=== PATIENT | female | born 1990 | race Caucasian/White ===

== ENCOUNTER 2024-09-09 17:38 | Emergency (ER) | payer MEDICAID, SELFPAY ==
[2024-09-09 17:42] VITALS: BP 176/113; PULSE 74; RESP 17; TEMP 36.8; O2SAT 100
[2024-09-09 17:44] VITALS: BMI 20.1
--- NOTE | 2024-09-09 17:51 | XR_ITS ---
Examination: CT abdomen with intravenous contrast CT pelvis with intravenous contrast 2-D coronal reconstructions 2-D sagittal reconstructions Date and time of exam:September 09, 2024 1918 hours INDICATIONS: Injury by horse today to the left hip, left abdomen hip pain. CTDI: vol (mGy) 14.31 DLP: (mGycm) 471 Technique: Multiple axial sections of the abdomen and pelvis have been obtained. 64 slice high-resolution scanner used. 3 mm axial sections have been obtained, post intravenous injection of Isovue 370 2-D sagittal, coronal reconstructions obtained. Low dose protocols were performed. One or more of the following dose reduction techniques were used; automated exposure control, adjustment of the mA and/or KV according to patient size, use of iterative reconstruction technique. Findings: No focal liver or splenic or renal laceration Absent gallbladder Aorta intact no free blood in the abdomen Negative for pneumoperitoneum Urinary bladder intact Distended urinary bladder which is intact No lumbar or sacral fracture Hips bone to the pelvis is intact IMPRESSION: No abdominal parenchymal laceration No free blood in the abdomen or pelvis Osseous structures including hips appear intact
--- NOTE | 2024-09-09 17:51 | XR_ITS ---
Examination: CT brain head without contrast. 2-D sagittal coronal reconstructions Date and time of exam:September 09, 2024 1908 hours INDICATIONS: Images of the head today, head pain CTDI: vol (mGy):46.3 DLP: (mGycm):868 Technique: Multiple CT axial sections of the brain have been obtained, 5 mm slice thickness. Contrast has not been administered. 2-D sagittal, coronal reconstructions have been obtained Low dose protocols were performed. One or more of the following dose reduction techniques were used; automated exposure control, adjustment of the mA and/or KV according to patient size, use of iterative reconstruction technique. Findings: No significant ventricular enlargement. Intra-axial or extra-axial hemorrhage density is not seen. No mass effect or midline shift Basal cisterns are not remarkable. Fourth ventricle is midline. Cranial vault intact. Impression: Negative for acute hemorrhage, mass effect or midline shift
--- NOTE | 2024-09-09 17:51 | XR_ITS ---
Examination: CT maxillofacial, without intravenous contrast. 2-D sagittal reconstructions. 3-D reconstructions. Date and time of exam:September 09, 2024 1915 hours INDICATIONS: Injury to face and head, facial pain CTDI: vol (mGy):21.2 DLP: (mGycm):388 Technique: Multiple axial images of maxillofacial region, 3.0 mm slice thickness. 2-D sagittal and coronal reconstructions. 3-D reconstructions. Low dose protocols were performed. One or more of the following dose reduction techniques were used; automated exposure control, adjustment of the mA and/or KV according to patient size, use of iterative reconstruction technique. Findings: Frontal bone frontal sinuses intact Orbital rims intact, no retro-orbital contusion Nasal bones maxilla and the mandible intact IMPRESSION: No acute facial fracture.
--- NOTE | 2024-09-09 17:53 | EDNOTE_ITS ---
<Statement entered by Candice Solis MD - 09/11/24 18:30> As co-signing physician, I was present and available for consult prn. I concur with the plan and care as documented by the midlevel provider. Lower Extremity Injury RME/HPI General Chief Complaint: Hip Injury/Pain Stated Complaint: KICKED BY HORSE Time Seen by Provider: 09/09/24 17:47 Arrival date/time: 09/09/24 17:38 RME / HPI RME / HPI Narrative: 34-year-old female patient with no significant medical history, came in for evaluation regarding multiple injury after patient was kicked by a horse incident happened few minutes prior to ER visit, patient was kicked by a horse while behind a horse sustaining bruising and contusion to the left sacrum attic area, and open laceration to the left iliac area. Patient also complained of abdominal pain. Denies any neck pain no nausea no vomiting no LOC patient is able to ambulate but with pain. Tetanus vaccination is unknown. Related Data Previous Rx's ?Medication ?Instructions ?Recorded amoxicillin 875 mg-potassium 1 tab PO BID #14 tabs 02/23 clavulanate 125 mg tablet tramadol 50 mg tablet 50 mg PO Q6H PRN pain #20 ta bs 09/09/24 Allergies Allergy/AdvReac Type Severity Reaction Status Date / Time doxycycline Allergy Severe Hives Verified 09/09/24 17:55 metoclopramide (From Reglan) Allergy Severe Anxiety Verified 09/09/24 17:55 Tetracyclines Allergy Severe Hives Verified 09/09/24 17:55 Review of Systems Review of Systems Narrative Review of Systems: Review of system reviewed and within normal limits except mentioned in HPI ED Exam Narrative Physical exam: VITAL SIGNS: Reviewed. GENERAL APPEARANCE: Alert and interactive, follows commands, no acute distress, HEAD AND FACE: Bruising contusion swelling left zygomatic area, left eyebrow ENT: PERRL, pink conjunctivitis, eyelid no trauma, Mucous membrane moist. NECK: Supple, nontender, no nuchal rigidity. CHEST: No tenderness, no crepitus, no paradoxical movement, no retractions. LUNGS: Clear, well ventilated, symmetric, no rales, no wheezing, no ronchi, no stridor, good breath sounds bilaterally. HEART: Regular rate, regular rhythm, no murmur, no gallops. ABDOMEN: Soft, positive bowel sounds, nondistended, no guarding, nontender, no rebound, no masses, RECTAL: Deferred. GENITAL: Deferred. NEUROLOGICAL: Gross motor function intact sensory function intact, Appropriate for age. MUSCULOSKELETAL: low back nontender, full range of motion. 1.5 cm laceration, left iliac area with active bleeding with tenderness bruising EXTREMITIES: Nontender, full range of motion. SKIN: Color pink, dry, no rash, no lacerations, no abrasions, no contusions. LYMPHATICS: Deferred. Course Quality Measures none Orders Category Date Time Status CT Screening NOW Care 09/09/24 17:[address] abdomen pelvis w con Stat Exams 09/09/24 17:[address] facial bones wo con Stat Exams 09/09/24 17:[address] head/brain wo con Stat Exams 09/09/24 17:51 Completed Beta HCG,Quantitative Stat Lab 09/09/24 18:01 Completed CBC [CBC] Stat Lab 09/09/24 18:01 Completed CMP [Comprehensive Metabolic Panel] Stat Lab 09/09/24 18:01 Completed HCG Qualitative,Urine Stat Lab 09/09/24 19:50 Completed HCG,Qualitative Serum Stat Lab 09/09/24 18:01 Completed PTT [Partial Thromboplastin Time] Stat Lab 09/09/24 18:01 Completed UA, C/S IF [Urinalysis, C/S if Indicated] Stat Lab 09/09/24 19:50 Completed Urine Culture Stat Lab 09/09/24 19:50 Received Acetaminophen Tab [Tylenol ES Tab] Med 09/09/24 17:51 Discontinued 1,000 mg PO X1 ONE Amoxicillin/Pot Clav 875 [Augmentin 875] Med 09/09/24 19:00 Discontinued 1 tab PO X1 ONE Morphine Inj Med 09/09/24 18:54 Discontinued 5 mg IVP X1 ONE Ondansetron Odt [Zofran Odt] Med 09/09/24 17:51 Discontinued 4 mg PO X1 ONE TET,DIP/PERT AC (Adult)-Tdap [Boostrix Adult (Tdap) Med 09/09/24 17:56 Discontinued Vacc] 0.5 ml IMI .ONCE ONE Vital Signs Vital signs: Vital Signs Temperature 98.2 F 09/09/24 17:42 Pulse Rate 74 09/09/24 17:42 Respiratory Rate 17 09/09/24 17:42 Blood Pressure 176/113 H 09/09/24 17:42 Pulse Oximetry (%) 100 09/09/24 17:42 Oxygen Delivery Method Room Air 09/09/24 17:42 Procedures -ED Laceration Laceration 1: Site: other (Left iliac area) Size (cm): 2 Description: linear Depth: simple, single layer Local Anesthetic: lidocaine 1% Amount of anesthesia used (mL): 5 Pre-repair: wound explored and irrigated extensively Skin layer closed with: nylon Suture size (cm): 5-0 Number of sutures: 3 Technique: simple, interrupted Extremity Injury, Lower MDM Narrative MDM Narrative:: 34-year-old female patient with no significant medical history, came in for evaluation regarding multiple injury after patient was kicked by a horse incident happened few minutes prior to ER visit, patient was kicked by a horse while behind a horse sustaining bruising and contusion to the left sacrum attic area, and open laceration to the left iliac area. Patient also complained of abdominal pain. Denies any neck pain no nausea no vomiting no LOC patient is able to ambulate but with pain. Tetanus vaccination is unknown. Patient's workup all came back unremarkable. CT scan of the head came back unremarkable CT scan of face came back unremarkable CT scan of the abdomen and pelvis with contrast came back unremarkable. Results discussed with the patient. Urinalysis no hematuria. Repair and suturing was done by me see procedure notes Patient data External records reviewed:: None Clinical information provided by:: patient Social determinants that could affect healthcare access:: none Patient has the following chronic illnesses:: None How is presenting disease/condition affected by chronic disease/condition?: no chronic disease Evaluation data The following diagnostics were reviewed and interpreted by me:: lab results and radiology exam(s) Lab and/or radiology exams considered but not ordered:: None Interpretation Summary: See results MDM Medications / Prescriptions Medications or Prescriptions considered but not ordered:: None Medication administrations:: Medication Administration History Discontinued Medications Acetaminophen (Acetaminophen 500 Mg Tablet) 1,000 mg PO X1 ONE Stop: 09/09/24 17:52 Last Admin: 09/09/24 18:19 Dose: 1,000 mg Documented By: GM Amoxicillin/Clavulanate Potassium (Amoxicillin/Pot Clav 875 Tablet) 1 tab PO X1 ONE Stop: 09/09/24 19:01 Last Admin: 09/09/24 19:52 Dose: 1 tab Documented By: EE Diphtheria/Tetanus/Acell Pertussis (Diphth,Pertuss(Acell),Tet Vac 0.5 Ml Syr- Adult) 0.5 ml IMi .ONCE ONE Stop: 09/09/24 17:57 Last Admin: 09/09/24 19:53 Dose: Not Given Documented By: EE Non-Admin Reason: Patient Refused Morphine Sulfate (Morphine Sulf Inj 10 Mg/Ml Vial) 5 mg IVP X1 ONE Stop: 09/09/24 18:55 Last Admin: 09/09/24 19:00 Dose: 5 mg Documented By: DB Ondansetron HCl (Ondansetron Odt 4 Mg Tabrap) 4 mg PO X1 ONE; Protocol Stop: 09/09/24 17:52 Last Admin: 09/09/24 18:19 Dose: 4 mg Documented By: GM Morphine, Boostrix, Augmentin and Zofran Consultations Consultation(s) initiated? (list below): No Diagnosis Extremity Injury, Lower Differential Diagnosis: other (Left iliac laceration, contusion left eyebrow, kicked by a horse) Most likely diagnosis given after review of the tests above:: Left iliac laceration, contusion left eyebrow, kicked by a horse Admission Indicated Admission indicated?: not indicated Admission Request Was there a request for admission?: No Disposition Plan Disposition Plan: Discharge Discharge Attestation Discharge Attestation: The patient and all family members were given an opportunity to ask questions and understood the discharge instructions. Discharge instructions specifically effects, indications for sooner follow up or return to the emergency department, and the expected course of current diagnosis. Patient condition: Stable Discharge Plan Plan Patient Disposition: HOME (Self Care) Discharge Disposition comment: stable Prescriptions/Referrals Prescriptions/Med Rec: New tramadol 50 mg tablet 50 mg PO Q6H PRN (Reason: pain) Qty: 20 0RF amoxicillin-pot clavulanate 875-125 mg tablet 1 tab PO BID Qty: 14 0RF Referrals: No Primary/Family,Physician [Primary Care Provider] - In 1 week Problem List Clinical Impression: Contusion of eyebrow, Laceration Patient/Caregiver Discharge Instructions Discharge Activity: activity as tolerated Education Materials: ED Soft Tissue Contusion Print Language: Slovak Stand Alone Forms: Naila Award Info., Patient Portal Info Letter
[2024-09-09 18:07] LABS: Basophils # (Auto) 0.1 Thou/mm3 (0.0-0.2); Basophils % (Auto) 1 % (0-2.5); Eosinophils # (Auto) 0.1 Thou/mm3 (0.0-0.5); Eosinophils % (Auto) 2 % (0-10); Hematocrit 30.1 % (36.0-46.0); Hemoglobin 10.1 g/dL (12.0-16.0); Immature Granulocytes % (Auto) 1 % (0-0); Immature Granulocytes Auto 0.05 Thou/mm3 (0.00-0.00); Lymphocytes # (Auto) 1.2 Thou/mm3 (1.0-4.8); Lymphocytes % (Auto) 14 % (10-50); Mean Corpuscular HGB Conc 33.6 g/dl (31.0-37.0); Mean Corpuscular Hemoglobin 26.6 pg (25.0-35.0); Mean Corpuscular Volume 79 fL (80-100); Monocytes # (Auto) 0.5 Thou/mm3 (0.0-0.8); Monocytes % (Auto) 6 % (0-12); Neutrophils # (Auto) 6.5 Thou/mm3 (1.8-7.7); Neutrophils % (Auto) 77 % (37-80); Nucleated Red Blood Cell % 0 /100 WBC (0); Platelet Count 284 Thou/mm3 (140-440); RDW Standard Deviation 41.4 fL (36.4-46.3); Red Blood Count 3.79 Miln/mm3 (4.00-5.20); White Blood Count 8.3 Thou/mm3 (3.6-11.0)
[2024-09-09] MEDS: ACETAMINOPHEN 500 MG TABLET 1000 MG PO (18:19)
[2024-09-09] MEDS: ONDANSETRON ODT 4 MG TABRAP PO ×2 (18:19→21:59)
[2024-09-09 18:26] LABS: Alanine Aminotransferase 17 U/L (10-49); Albumin, Serum 4.3 gm/dL (3.5-5.0); Alkaline Phosphatase 40 U/L (46-116); Anion Gap 9 (7-16); BUN/Creatinine Ratio 12 Ratio (12-20); Bilirubin,Total 0.3 mg/dL (0.3-1.2); Blood Urea Nitrogen 11 mg/dL (9-23); Carbon Dioxide 23.3 mMol/L (20.0-31.0); Chloride 110 mMol/L (98-107); Creatinine (Component) 0.9 mg/dL (0.6-1.3); Estimated Creatinine Clearance 72.4 mL/min (>60); Globulin 2.2 gm/dL (2.3-3.5); Glucose 93 mg/dL (74-106); Osmolality,Calculated 282 (275-295); Potassium 4.1 mMol/L (3.4-5.1); Sodium 142 mMol/L (136-145); Total Protein 6.5 gm/dL (5.7-8.2); eGFR > 60 See Note
[2024-09-09 18:27] LABS: Partial Thromboplastin Time 20.7 Seconds (22.0-36.0)
[2024-09-09] MEDS: MORPHINE SULF INJ 10 MG/ML VIAL 5 MG IVP (19:00)
[2024-09-09 19:29] LABS: HCG,Qualitative Serum Positive
[2024-09-09] MEDS: AMOXICILLIN/POT CLAV 875 TABLET 1 TAB PO (19:52)
[2024-09-09 20:12] LABS: Collection Type, Urine Clean Catch
[2024-09-09 20:25] LABS: Beta HCG,Quantitative 15 mIU/mL (<5.0)
[2024-09-09 20:47] LABS: Bacteria,Urine Rare; Bilirubin,Urine Negative (Negative); Blood,Urine Trace (Negative); Clarity,Urine Clear (Clear/Hazy); Color,Urine Colorless (Lt Yel-Yel); Glucose, Urine Negative (Negative); Ketones,Urine Negative (Negative); Leukocyte Esterase,Urine Negative (Negative); Nitrite,Urine Positive (Negative); Protein,Urine Negative (Neg - Trace); RBC,Urine 3 /hpf (0-3); Squamous Epithelial Cell,Urine 1 /hpf (0-5); Urobilinogen,Urine Negative mg/dL (0.0-1.0); WBC,Urine 3 /hpf (0-5)
[2024-09-09 20:48] LABS: Culture Indicated,Urine Yes; HCG Qualitative,Urine Negative
[2024-09-09 21:25] VITALS: BP 150/102; PULSE 93; RESP 18; TEMP 36.7; O2SAT 99
[2024-09-09] MEDS: KETOROLAC INJ 60 MG/2 ML VIAL 30 MG IM (21:58)
[2024-09-09] MEDS: HYDROcodone/APAP 10/325 TAB PO (21:59)
== END 2024-09-09 22:12 | disposition home or self-care (01) ==
PROVIDERS: Nurse Practitioner Family; Emergency Provider Emergency Medicine
DX: S31.114A Laceration without foreign body of abdominal wall, left lower quadrant without penetration into peritoneal cavity, initial encounter (principal); S00.12XA Contusion of left eyelid and periocular area, initial encounter; S30.0XXA Contusion of lower back and pelvis, initial encounter; S39.91XA Unspecified injury of abdomen, initial encounter; S09.93XA Unspecified injury of face, initial encounter; S09.90XA Unspecified injury of head, initial encounter; W55.12XA Struck by horse, initial encounter
CPT/HCPCS: 12002; 36415; 70450; 70486; 74177; 80053; 81001; 81025; 84702; 84703; 85025; 85730; 87077; 87086; 87186; 96372; 96374; 99285; A4649; J1885; J2270; Q0162; Q9967; A9270